=== PATIENT | female | born 1950 | race Caucasian/White ===

== ENCOUNTER → 2016-09-11 | Day surgery (SDC) | payer MEDICARE, OTHER ==
[~2016-09-11] MED LIST: BUPIVACAINE HCL PF 0.75% 30 ML VIAL ONE; LACTATED RINGER'S 1000 ML INJ 1,000 ML ONE; LIDOCAINE 1.5%/EPINEPHrine 1:200,000 PF SOLN 30 ML AMP ONE; MIDAZOLAM HCL 5 MG/ML VIAL (1 ML) ONE; ONDANSETRON HCL 4 MG/2 ML VIAL IV PUSH ONE; PROPOFOL 100 MG/10 ML INJ IV ONE; SODIUM CHLORIDE 0.9% 250 ML ADDBAG IV ONE; VANCOMYCIN 500 MG VIAL ONE
--- NOTE | 2016-09-11 16:12 | TN ---
cc: MARTHA AGEE MD DATE OF SURGERY: 09/11/2016. PREOPERATIVE DIAGNOSIS: Right shoulder impingement syndrome, ruptured long head of biceps tendon, AC joint arthritis. POSTOPERATIVE DIAGNOSIS: Right shoulder impingement syndrome, ruptured long head of biceps tendon, AC joint arthritis. OPERATIVE PROCEDURE PERFORMED: Right shoulder arthroscopy with subacromial decompression including anterior acromioplasty and coracoacromial ligament release, debridement of biceps tendon and open excision distal clavicle. DESCRIPTION OF THE PROCEDURE IN DETAIL: Informed consent was obtained. The patient was taken to the operating room and placed in the supine position on the operating table. She was administered a general anesthesia by Dr. Zendejas of the anesthesia department. At that time, the patient was placed in the lateral decubitus position on the barlow bag. The shoulder was then prepped with Betadine soap followed by Betadine paint. The patient was given Vancomycin 500 milligrams prior to the initiation of the operative procedure. At that time, a sterile down sheet was placed followed by four sterile towels, split sheets, stockinette was applied over the hand and forearm and this was the stockinette for the Acufex shoulder hdz. Ten pounds of traction was applied through a rope and over the Acufex shoulder hdz and at that time, a time out was held and confirmed. The patient had been Vancomycin 500 milligrams as noted prior to the initiation of the operative procedure. At that time, an 18-gauge needle was placed approximately 1 cm inferior to the posterior angle of the acromion and directed towards the coracoid process. The shoulder joint was entered. A small incision was made with an 11 blade and the arthroscopic cannula was introduced into the shoulder joint. Inflow was placed in the cannula and the arthroscope plus camera was placed in the shoulder joint. The humeral head was identified as was the subscapularis. There were no undersurface rotator cuff tears. There was slight fraying. The patient was noted to have a complete rupture of the long head of the biceps tendon from just distal to the glenoid. There were no obvious labrum tears seen. An anterior portal was established. The shoulder was cleaned with the shaver. The biceps tendon remnant was cleaned with a shaver. At that time, the shoulder was irrigated. All cannulas were removed. A posterior cannula was then placed into the subacromial bursa and a straight lateral portal was established. Some of the bursal tissue was excised with the shaver. The coracoacromial ligament was identified and was cut with a basket forceps. Utilizing the shaver and then a bur, an anterior acromioplasty was performed. Once this was complete, this area was irrigated and suctioned. All cannulas were removed. An incision was then made transversely over the AC joint. A longitudinal incision was made through the periosteum which was elevated anteriorly and posteriorly utilizing an oscillating saw. The distal one-quarter inch of clavicle was removed. This region was irrigated and closed with #1 Vicryl and #0 Vicryl. The subcutaneous tissue was then closed with 3-0 plain and the skin was closed with 4-0 nylon interrupted stitches utilizing the Allgower type stitch. Steri-Strips were applied over the AC incision. Band-Aids to the arthroscopy portals. 4x4s, ABD and tape were applied to the patient's shoulder. She was placed in a sling. The patient tolerated the procedure well and was then taken to the recovery room in stable condition. At the completion of the procedure, the sponge counts, instrument counts and needle counts were correct. The estimated blood was less than 10 cc. MD JOSLYN Capps/FATOUMATA /2:45 PM /3:57 PM
== END | disposition home or self-care (01) ==
LOC: ESDC 10:50
PROVIDERS: ATTEND Orthopaedic Surgery
DX: M75.41 Impingement syndrome of right shoulder (principal); S46.111A Strain of muscle, fascia and tendon of long head of biceps, right arm, initial encounter; M19.011 Primary osteoarthritis, right shoulder
CPT/HCPCS: 00450; 01630; 01991; 23120; 29822; 29826; 64417; J2250; J2405; J3370; J7120